=== PATIENT | male | born 1935 | race Caucasian/White ===

== ENCOUNTER → 2020-05-01 17:11 | Outpatient (CLI) | payer MEDICARE, SELFPAY ==
[2020-05-01 17:37] LABS: Basophils % 0.5 % (0.1-2.0); Eosinophils # 0.1 K/mm3 (0.0-0.4); Hematocrit 43.5 % (42.0-52.0); Hemoglobin 13.8 g/dL (14.1-18.0); Lymphocytes # 1.2 K/mm3 (0.7-4.5); Lymphocytes % 13.1 % (10-50); Mean Corpuscular HGB Conc 31.7 g/dL (31.8-35.4); Mean Corpuscular Hemoglobin 29.2 pg (27.0-31.2); Mean Corpuscular Volume 91.9 fl (80-94); Mean Platelet Volume 9.4 fl (7.4-10.4); Monocytes # 0.6 K/mm3 (0.1-1.0); Monocytes % 7.2 % (1.7-9.3); Neutrophils # 6.9 K/mm3 (1.8-7.8); Neutrophils % 78.1 % (37.0-80.0); Platelet Count 240 K/mm3 (142-424); Red Blood Count 4.74 M/mm3 (4.60-6.20); Red Cell Distribution Width 14.1 % (11.5-17.5); White Blood Count 8.8 K/mm3 (4.8-10.8)
[2020-05-01 17:58] LABS: Alanine Aminotransferase 14 U/L (12-78); Albumin Level 3.8 g/dl (3.5-5.0); Albumin/Globulin Ratio 1.4 (1.1-1.8); Alkaline Phosphatase 117 U/L (38-126); Anion Gap 14.2 mEq/L (5-15); Aspartate Amino Transferase 23 U/L (17-59); Bilirubin,Total 0.6 mg/dl (0.2-1.3); Blood Urea Nitrogen 25 mg/dl (9-20); Calcium 9.5 mg/dl (8.4-10.2); Carbon Dioxide 26 mmol/L (22.0-30.0); Chloride 107 mmol/L (98-107); Chol/HDL Ratio 3.5 (1-3.5); Cholesterol 136 mg/dl (140-200); Estimated Glomerular Filt Rate 58 ml/min (>60); GFR (African American) 70 ML/MIN (>60); Globulin 2.8 g/dL (1.3-3.2); Glucose 220 mg/dl (74-100); HDL Cholesterol 39 mg/dl (40-60); Potassium 5.2 mmoL/L (3.5-5.1); Sodium 142 mmol/L (136-145); Total Protein,Serum 6.6 g/dl (6.3-8.2); Triglycerides 143 mg/dl (30-150); VLDL Cholesterol 29 mg/dL (0-40)
[2020-05-01 18:10] LABS: Direct LDL Cholesterol 76.75 mg/dL (100-129)
[2020-05-01 18:17] LABS: T4 (Thyroxine) 8.1 ug/dl (5.53-11.0)
[2020-05-01 18:31] LABS: Thyroid Stimulating Hormone 0.96 uIU/mL (0.465-4.68)
[2020-05-01 19:02] LABS: Hemoglobin A1C 7.4 % (4.0-6.0)
== END ==
PROVIDERS: Visit Provider Family Medicine
DX: E11.9 Type 2 diabetes mellitus without complications (principal); I10 Essential (primary) hypertension; Z79.84 Long term (current) use of oral hypoglycemic drugs
CPT/HCPCS: 80053; 80061; 83036; 84436; 84443; 85025

== ENCOUNTER 2020-06-08 10:31 | Observation (INO) | payer MEDICARE, SELFPAY ==
[2020-06-08 10:32] VITALS: BP 98/53; PULSE 66; RESP 19; O2SAT 95; BMI 23.7
--- NOTE | 2020-06-08 11:30 | HMH.EDGENADL ---
ED Disposition Clinical Impression: Gross hematuria Disposition: Admitted As Inpatient Condition on Discharge: Good Referrals: Jelani Ashley MD [Primary Care Provider] - - Critical Care Critical Care Time: No Attestation: On 06/08/20, the high probability of a clinically significant, sudden or life threatening deterioration of the following system(s) required my full and direct attention, intervention and personal management. The time I documented below is in addition to time spent performing reported procedures but includes the following listed in this critical care notation. Medical Decision Making - Medical Records Medical records reviewed: Yes: I reviewed the patient's medical records. - Andrew Inquiry Pt receiving controlled substance: No Vital Signs: 06/08/20 10:32 Pulse Rate [Right Brachial] 66 Respiratory Rate 19 Blood Pressure [Right Arm] 98/53 L Blood Pressure Mean [Right Arm] 68 Blood Pressure Source [Right Arm] Automatic Cuff Blood Pressure Position [Right Arm] Sitting 02 Sat by Pulse Oximetry 95 Orders (Tests/Meds): ORDERS Category Date Time Status CMP [Comprehensive Metabolic Panel] Stat Lab 06/08/20 11:00 Ordered Complete Blood Count Auto Diff Stat Lab 06/08/20 11:00 Ordered Urinalysis and Microscopic Stat Lab 06/08/20 11:33 Ordered Medical Decision Narrative: 84-year-old male presents with hematuria he thinks is consistent with prostate bleeding. This is happened before. He is hemodynamically stable on initial exam with normal vital signs. Laboratory evaluation was obtained, Quezada placed, discussed case with Dr. Ashley. Plan to admit for further management with consultation to Dr. Geiger. General Adult HPI - General Chief complaint: GI Bleed Stated complaint: bleeding from prostate Time Seen by Provider: 06/08/20 10:35 Mode of Arrival: Wheelchair Limitations: Physical Limitations Description of Symptoms (Recalled from ER Triage Doc. by RN): BLEEDING NOTED FROM PROSTATE COMING FROM PENIS, WAS ON BED THIS MORNING - History of Present Illness HPI narrative: 84-year-old male presents with bleeding from prostate. He says he has had this before and had to be admitted at one time for this. He noticed that the bright red blood came from his penis this morning. No fever no chills no flank pain no abdominal pain. He is on Pradaxa as well. Onset (ago): hour(s) (1) Radiation: non-radiation Severity: mild - Related Data Previous Rx's Medication Instructions Recorded dabigatran etexilate 150 mg capsule 150 mg PO BID #180 cap 09/20/19 hydralazine 50 mg tablet 50 mg PO BID #180 tab 09/20/19 isosorbide dinitrate 20 mg tablet 20 mg PO BID #180 tab 09/20/19 losartan 100 mg tablet 100 mg PO DAILY #90 tab 09/20/19 metformin 500 mg tablet 500 mg PO BID #180 tab 09/20/19 metoprolol tartrate 50 mg tablet 50 mg PO BID #180 tab 09/20/19 tamsulosin 0.4 mg capsule 0.4 mg PO DAILY #90 cap 09/20/19 donepezil 5 mg tablet 5 mg PO HS #90 tab 05/01/20 finasteride 5 mg tablet 5 mg PO DAILY #90 tab 05/01/20 methylphenidate HCl 20 mg tablet 20 mg PO QAM #30 tab 05/01/20 alcohol swabs 1 pad TOPICAL DIRECTED #100 each 05/26/20 blood glucose control high and low See Rx Instructions .ROUTE 05/30/20 solution .MEDSUPPLY #1 each blood sugar diagnostic See Rx Instructions .ROUTE 05/30/20 .MEDSUPPLY #100 each blood-glucose meter See Rx Instructions .ROUTE 05/30/20 .MEDSUPPLY #1 each lancets See Rx Instructions .ROUTE 05/30/20 .MEDSUPPLY #200 each sulfamethoxazole 800 1 tab PO BID #20 tab 06/06/20 mg-trimethoprim 160 mg tablet Allergies Allergy/AdvReac Type Severity Reaction Status Date / Time clindamycin Allergy Verified 05/01/20 13:09 Penicillins AdvReac Unknown Verified 05/01/20 12:56 [facility] History - Hepatitis A Screen Drug use history?: No High risk sexual behaviors?: No History of sexually transmitted infection?: No Currently employed?: No Childcare worker?: No Do
--- NOTE | 2020-06-08 12:31 | PC.NURSE ---
Dr bui speaking with Dr Ashley
[2020-06-08 12:42] LABS: Microscopic, Urine URINE MICROSCOPIC (MICROSCOPIC)
[2020-06-08 12:45] LABS: Appearance,Urine CLEAR (Clear); Blood, Urine 3+ (Negative); Color,Urine YELLOW (Yellow); Glucose,Urine (UA) TRACE (Negative); Ketones,Urine 1+ (Negative); Leukocyte Esterase,Urine 2+ (Negative); Nitrate,Urine POSITIVE (Negative); Protein,Urine 3+ (Negative); Specific Gravity, Urine 1.015 (1.005-1.030); Urobilinogen,Urine >=8.0 EU/dl (0.2)
[2020-06-08 12:49] VITALS: BMI 21.5
[2020-06-08 12:54] LABS: Adenovirus,PCR Not Detected (NotDetected); Bordetella Pertussis Not Detected (NotDetected); Chlamydophila Pneumoniae, PCR Not Detected (NotDetected); Coronavirus 19, PCR Not Detected (NotDetected); Coronavirus 229E Not Detected (NotDetected); Coronavirus NL63 Not Detected (NotDetected); Coronavirus OC43 Not Detected (NotDetected); Coronovirus HKU1,PCR Not Detected (NotDetected); Human Metapneumovirus Not Detected (NotDetected); Influenza A, PCR Not Detected (NotDetected); Influenza AH1, 2009 Not Detected (NotDetected); Influenza AH1, PCR Not Detected (NotDetected); Influenza AH3,PCR Not Detected (NotDetected); Influenza B, PCR Not Detected (NotDetected); Mycoplasma Pneumoniae, PCR Not Detected (NotDetected); Parainfluenza 1, PCR Not Detected (NotDetected); Parainfluenza 2, PCR Not Detected (NotDetected); Parainfluenza 3, PCR Not Detected (NotDetected); Parainfluenza 4, PCR Not Detected (NotDetected); Respiratory Syncytial Virus Not Detected (NotDetected); Rhinovirus/Enterovirus Not Detected (NotDetected)
[2020-06-08 12:55] LABS: Bilirubin,Urine 2+ (Negative)
[2020-06-08 13:17] LABS: RBC,Urine 50-100 #/hpf (0-3)
[2020-06-08 13:18] LABS: Bacteria,Urine 1+ /lpf
--- NOTE | 2020-06-08 14:51 | PC.NURSE ---
REPORT CALLED TO CHAD RUIZ ON SECOND FLOOR AT TIME
[2020-06-08 14:52] LABS: Chloride 105 mmol/L (98-107); Potassium 4.9 mmoL/L (3.5-5.1); Sodium 140 mmol/L (136-145)
[2020-06-08 14:54] LABS: Alanine Aminotransferase 11 U/L (12-78); Aspartate Amino Transferase 19 U/L (17-59); Basophils % 0.5 % (0.1-2.0); Blood Urea Nitrogen 21 mg/dl (9-20); Creatinine Clearance Estimated 44 mL/min (50-200); Eosinophils # 0.1 K/mm3 (0.0-0.4); Eosinophils % 1.5 % (0.1-12.0); Estimated Glomerular Filt Rate 48 ml/min (>60); GFR (African American) 59 ML/MIN (>60); Hemoglobin 13.3 g/dL (14.1-18.0); Lymphocytes % 12.8 % (10-50); Mean Corpuscular HGB Conc 31.7 g/dL (31.8-35.4); Mean Corpuscular Hemoglobin 28.4 pg (27.0-31.2); Mean Corpuscular Volume 89.5 fl (80-94); Monocytes # 0.7 K/mm3 (0.1-1.0); Monocytes % 8.9 % (1.7-9.3); Neutrophils # 6.1 K/mm3 (1.8-7.8); Neutrophils % 76.3 % (37.0-80.0); Platelet Count 233 K/mm3 (142-424)
[2020-06-08 14:55] LABS: Albumin Level 3.9 g/dl (3.5-5.0); Albumin/Globulin Ratio 1.4 (1.1-1.8); Alkaline Phosphatase 104 U/L (38-126); Anion Gap 13.9 mEq/L (5-15); Bilirubin,Total 0.8 mg/dl (0.2-1.3); Calcium 9.6 mg/dl (8.4-10.2); Carbon Dioxide 26 mmol/L (22.0-30.0); Globulin 2.7 g/dL (1.3-3.2); Glucose 137 mg/dl (74-100); Total Protein,Serum 6.6 g/dl (6.3-8.2)
--- NOTE | 2020-06-08 15:31 | PC.NURSE ---
Pt arrived to the floor at this time.
[2020-06-08 15:52] VITALS: BP 122/61; PULSE 71; RESP 16; TEMP 36.8; O2SAT 97
[2020-06-08 15:59] VITALS: BP 127/98; PULSE 79; RESP 22; TEMP 36.6; O2SAT 93
--- NOTE | 2020-06-08 16:48 | HMH.CONS ---
*Admission Date: 06/08/20 *Reason for consult:: Gross hematuria *History of present illness: Patient is an 84-year-old white male who presented to the emergency room this morning with 1 day history of gross hematuria by report. Patient is a poor historian as he is pleasantly demented. Nursing report gives a prior history of bleeding from a prostate etiology. Patient is on tamsulosin and finasteride. He is also on Pradaxa. Quezada catheter was placed in the emergency room and he is currently on the floor. His labs show slightly elevated creatinine at 1.4 and hemoglobin of 13.8. His urinalysis shows positive nitrites 2+ leukocyte esterase 50-100 red blood cells. Patient denies any dysuria. His was here earlier by nursing report but is not here at this time for any further details. The Quezada catheter is draining well and there is no evidence of clots in the Quezada bag. The urine is maroon color. [facility] History Medical History: Reports:: Cancer (SKIN), Depression, Diabetes Mellitus Type 2, Hiatal Hernia, Hypertension, Internal Pacemaker, Urinary Tract Infection Denies:: Diabetes Mellitus Type 1, MRSA *Have you ever received a pneumonia vaccine?: Yes *Have you received a flu vaccine this season?: Yes Other Medical History: Reports: Arthritis Laterality Cases: Right: Other, Bilateral: Carpal Tunnel Release Other Surgeries: Yes: Cardiac Surgery, Colonoscopy, Coronary Stent, Hernia Repair, Pacemaker Amputation: No - *Social History Smoking Status: Former smoker Alcohol Intake: never Substance Use Type: denies use *Occupational Status:: retired Housing: house Household Members: spouse *Travel in the last 8 weeks: None - Psychiatric History Pschychiatric History:: Reports:: Depression Family Hx:: Heart Attack, Hyperlipidemia, Hypertension Review of Systems - Review of Systems Review of systems:: unable to obtain - *Neurologic Denies dizziness, Denies headache(s) Meds Home Medications Medication Instructions Recorded Confirmed Type methylphenidate HCl 20 mg tablet 20 mg PO QAM #30 tab 05/01/20 06/08/20 Rx Alcohol Antiseptic Pads [Alcohol 1 pad TOPICAL DIRECTED 06/08/20 06/08/20 History Swabs] Blood Glucose Control High,Low See Rx Instructions .ROUTE 06/08/20 06/08/20 History [Accu-Chek Guide L1-L2 Ctrl Lea] .MEDSUPPLY Blood Sugar Diagnostic [Accu-Chek See Rx Instructions .ROUTE 06/08/20 06/08/20 History Guide test strips] .MEDSUPPLY Blood-Glucose Meter [Blood Glucose See Rx Instructions .ROUTE 06/08/20 06/08/20 History Meter] .MEDSUPPLY Dabigatran Etexilate Mesylate 150 mg PO BID 06/08/20 06/08/20 History [Pradaxa] Donepezil HCl [Aricept 5mg 5 mg PO HS 06/08/20 06/08/20 History Tablet] Finasteride [Proscar] 5 mg PO DAILY 06/08/20 06/08/20 History Hydralazine HCl 50 mg PO BID 06/08/20 06/08/20 History Isosorbide Dinitrate [Isordil 20mg 20 mg PO BID 06/08/20 06/08/20 History tablet] Lancets See Rx Instructions .ROUTE 06/08/20 06/08/20 History .MEDSUPPLY Losartan Potassium [Cozaar 100mg 100 mg PO DAILY 06/08/20 06/08/20 History Tablets] Metformin HCl [Glucophage] 500 mg PO BID 06/08/20 06/08/20 History Metoprolol Tartrate 50 mg PO BID 06/08/20 06/08/20 History Tamsulosin HCl 0.4 mg PO DAILY 06/08/20 06/08/20 History Allergies Allergy/AdvReac Type Severity Reaction Status Date / Time clindamycin Allergy Verified 05/01/20 13:09 Penicillins AdvReac Unknown Verified 05/01/20 12:56 Exam Vital signs and Labs for Last 24 Hours: Temp Pulse Resp BP Pulse Ox 97.8 F 79 22 127/98 H 93 L 06/08/20 15:59 06/08/20 15:59 06/08/20 15:59 06/08/20 15:59 06/08/20 15:59 Laboratory Results - last 24 hr 06/08/20 12:35: Urine Color Yellow, Urine Appearance Clear, Urine pH 7.0, Ur Specific [place] 1.015, Urine Protein 3+, Urine Glucose (UA) Trace, Urine Ketones 1+, Urine Blood 3+, Urine Nitrate Positive, Urine Bilirubin 2+ A, Urine Urobilinogen >=8.0, Ur Leukocyte Esterase 2+ A, Urine RBC
--- NOTE | 2020-06-08 17:25 | PC.NURSE ---
DR. HOWE SEEN PT AND ORDERED A 22FR THREE WAY CATHETER AND CBI. HE STATED CBI WITH LR. Harish MORALES RN, Fili PALOMINO RN, AND THIS RN ALL AT BEDSIDE TO INSERT VANG AND START BLADDER IRRIGATION. ORDER ALSO FAXED TO PHARMACY FOR CDI.
--- NOTE | 2020-06-08 18:46 | PC.WOUNDNOTE ---
RIGHT SIDE OF HEAD ABOVE EAR
--- NOTE | 2020-06-08 19:04 | PC.NURSE ---
TOTAL INPUT FOR CBI SINCE STARTING IS APPROX. 1999. JUST EMPTIED 1850 TOTAL ML OUT OF VANG BAG.
--- NOTE | 2020-06-08 19:33 | HMH.HP ---
*Admission Date: 06/08/20 *Chief complaint: hematuria *History of present illness: Patient is an 84-year-old white male, well-known to me from my practice, who is admitted for gross hematuria. Patient has a longstanding history of BPH. He was slated to undergo a urologic procedure about 6 or 7 years ago. He has atrial fibrillation. Anticoagulation was held prior to this procedure, and he unfortunately sustained a thromboembolic stroke. He has had significant residual deficits following the stroke, gait instability and weakness. He requires [id number] care at home. Patient has comorbid diabetes, atrial fibrillation. He has a vegetative depression following the stroke. His dementia has been evolving. He has significant mood swings. Patient's has noticed gross hematuria. Continues to be anticoagulated for his atrial fibrillation. He presents for further evaluation and treatment. [facility] History Medical History: Reports:: Cancer (SKIN), Depression, Diabetes Mellitus Type 2, Hiatal Hernia, Hypertension, Internal Pacemaker, Urinary Tract Infection Denies:: Diabetes Mellitus Type 1, MRSA *Have you ever received a pneumonia vaccine?: Yes *Have you received a flu vaccine this season?: Yes Other Medical History: Reports: Arthritis Laterality Cases: Right: Other, Bilateral: Carpal Tunnel Release Other Surgeries: Yes: Cardiac Surgery, Colonoscopy, Coronary Stent, Hernia Repair, Pacemaker Amputation: No - *Social History Smoking Status: Former smoker Alcohol Intake: never Substance Use Type: denies use *Occupational Status:: retired Housing: house Household Members: spouse *Travel in the last 8 weeks: None - Psychiatric History Pschychiatric History:: Reports:: Depression Family Hx:: Heart Attack, Hyperlipidemia, Hypertension Review of Systems - Constitutional Reports lack of energy, Reports malaise - Eyes Denies change in vision - ENT Denies bleeding gums - *Cardiovascular Denies chest pain, Denies shortness of breath - *Respiratory Denies chest congestion - *Gastrointestinal Denies abdominal pain, Denies vomiting blood, Denies bright, red blood in stools, Denies black, tarry stools - *Genitourinary Reports difficulty urinating, Reports blood in urine, Reports urinary frequency, Reports urinary incontinence, Denies side pain - *Musculoskeletal Reports abnormal walking, Reports joint pain, Reports decreased muscle mass, Reports muscle weakness, Reports stiffness - Integumentary/Breasts Denies yellowing of the skin - *Neurologic Reports behavioral changes, Reports memory loss, Reports weakness, Denies dizziness, Denies headache(s) - Psychiatric Reports lack of enjoyment, Reports behavioral changes, Reports depression, Reports hopelessness, Reports irritability, Reports memory loss, Reports mood swings - Endocrine Reports rapid, pounding, or irregular heartbeat - Hematologic/Lymphatic Denies easy bleeding, Denies easy bruising - Allergic/Immunologic Denies hives Meds Home Medications Medication Instructions Recorded Confirmed Type methylphenidate HCl 20 mg tablet 20 mg PO QAM #30 tab 05/01/20 06/08/20 Rx Alcohol Antiseptic Pads [Alcohol 1 pad TOPICAL DIRECTED 06/08/20 06/08/20 History Swabs] Blood Glucose Control High,Low See Rx Instructions .ROUTE 06/08/20 06/08/20 History [Accu-Chek Guide L1-L2 Ctrl Lea] .MEDSUPPLY Blood Sugar Diagnostic [Accu-Chek See Rx Instructions .ROUTE 06/08/20 06/08/20 History Guide test strips] .MEDSUPPLY Blood-Glucose Meter [Blood Glucose See Rx Instructions .ROUTE 06/08/20 06/08/20 History Meter] .MEDSUPPLY Dabigatran Etexilate Mesylate 150 mg PO BID 06/08/20 06/08/20 History [Pradaxa] Donepezil HCl [Aricept 5mg 5 mg PO HS 06/08/20 06/08/20 History Tablet] Finasteride [Proscar] 5 mg PO DAILY 06/08/20 06/08/20 History Hydralazine HCl 50 mg PO BID 06/08/20 06/08/20 History Isosorbide Dinitrate [Isordil 20mg 20 mg PO BID 06/08/20 0
[2020-06-08 20:00] VITALS: BP 111/76; PULSE 63; RESP 18; TEMP 36.7; O2SAT 97
--- NOTE | 2020-06-09 02:31 | PC.NURSE ---
CBI HAS BEEN CONTINUOUS T/O SHIFT. URINE HAS BEEN LIGHT PINK T/O SHIFT. URINE NOW CLEAR. IRRIGATION DRIP SLOWED. WILL CONTINUE TO MONITOR URINE AND COLOR T/O SHIFT.
--- NOTE | 2020-06-09 03:06 | PC.NURSE ---
A&OX2. PT TOLERATING RA WELL T/O SHIFT. PT HAS HAD NO C/O PAIN THUS FAR. PT HAS BEEN RESTING MAJORITY OF SHIFT. CBI IS STILL CLEAR AT THIS TIME. TITRATED TO A SLOW DRIP. NO C/O THUS FAR, VSS WILL CONTINUE TO MONITOR.
[2020-06-09 04:00] VITALS: BP 119/68; PULSE 68; RESP 16; TEMP 36.8; O2SAT 97
--- NOTE | 2020-06-09 04:50 | PC.NURSE ---
URINE BACK TO LIGHT PINK IN COLOR. CBI INCREASED.
[2020-06-09 05:35] VITALS: BMI 21.2
[2020-06-09 07:19] LABS: Basophils % 0.4 % (0.1-2.0); Eosinophils # 0.2 K/mm3 (0.0-0.4); Eosinophils % 1.8 % (0.1-12.0); Hematocrit 42.4 % (42.0-52.0); Hemoglobin 13.6 g/dL (14.1-18.0); Lymphocytes # 1.3 K/mm3 (0.7-4.5); Lymphocytes % 14.5 % (10-50); Mean Corpuscular HGB Conc 32.1 g/dL (31.8-35.4); Mean Corpuscular Hemoglobin 28.9 pg (27.0-31.2); Mean Corpuscular Volume 89.8 fl (80-94); Mean Platelet Volume 8.7 fl (7.4-10.4); Monocytes % 11.1 % (1.7-9.3); Neutrophils # 6.4 K/mm3 (1.8-7.8); Neutrophils % 72.3 % (37.0-80.0); Platelet Count 213 K/mm3 (142-424); Red Blood Count 4.72 M/mm3 (4.60-6.20); Red Cell Distribution Width 14.1 % (11.5-17.5); White Blood Count 8.8 K/mm3 (4.8-10.8)
--- NOTE | 2020-06-09 07:25 | P.CONPHA_ITS ---
[facility] Pharm[facility] VTE Monitoring - Patient Demographics Admission date: 06/08/20 Report Date: 06/09/20 Time: 07:25 Allergies/Adverse Reactions: Patient Allergies clindamycin Allergy (Verified 05/01/20 13:09) Penicillins Adverse Reaction (Unknown, Verified 05/01/20 12:56) Height: 1.8 m Weight: 68.974 kg Patient Problems: Current Active Problems Gross hematuria (Acute) Hematuria (Acute) Dementia (Acute) Chronic anticoagulation (Acute) Pacemaker (Acute) Physical debility (Acute) Knee pain (Acute) Erosive osteoarthritis of multiple sites (Acute) Essential hypertension (Acute) Depression (Acute) BPH (benign prostatic hyperplasia) (Acute) Atrial fibrillation (Acute) History of stroke (Acute) - VTE Risk Labs: VTE Related Lab Results Hgb 13.3 g/dL (14.1-18.0) L 06/08/20 14:40 Hct 42.0 % (42.0-52.0) 06/08/20 14:40 Plt Count 233 K/mm3 (142-424) 06/08/20 14:40 BUN 21 mg/dl (9-20) H 06/08/20 14:40 Creatinine 1.40 mg/dl (0.66-1.25) H 06/08/20 14:40 Estimated Creat Clear 44 mL/min (50-200) 06/08/20 14:40 Was VTE Risk Assessment Performed: No VTE Score: 4 VTE Risk Level: Low Risk - Prophylaxis VTE Prophylaxis Ordered?: Yes Types of VTE Prophylaxis: TEDS Knee High Location of Applied Device: Bilateral Lower Extremeties
[2020-06-09 07:51] VITALS: O2SAT 99
[2020-06-09 08:00] VITALS: BP 124/77; PULSE 64; RESP 17; TEMP 36.8; O2SAT 98
--- NOTE | 2020-06-09 10:18 | HMH.PHAINT ---
MEDICATION RECONCILIATION COMPLETED USING EXTERNAL FILL HISTORY
[2020-06-09 13:44] LABS: Chloride 104 mmol/L (98-107); Potassium 4.6 mmoL/L (3.5-5.1); Sodium 140 mmol/L (136-145)
[2020-06-09 13:47] LABS: Anion Gap 14.6 mEq/L (5-15); Blood Urea Nitrogen 20 mg/dl (9-20); Carbon Dioxide 26 mmol/L (22.0-30.0); Cholesterol 138 mg/dl (140-200); Creatinine Clearance Estimated 42 mL/min (50-200); Estimated Glomerular Filt Rate 53 ml/min (>60); GFR (African American) 64 ML/MIN (>60); Triglycerides 76 mg/dl (30-150); VLDL Cholesterol 15 mg/dL (0-40)
[2020-06-09 13:48] LABS: Calcium 9.4 mg/dl (8.4-10.2); Chol/HDL Ratio 3.7 (1-3.5); Glucose 98 mg/dl (74-100); HDL Cholesterol 37 mg/dl (40-60); Magnesium 2.1 mg/dl (1.6-2.3); Phosphorous 3.7 mg/dl (2.5-4.5)
[2020-06-09 15:39] VITALS: BMI 21.2
--- NOTE | 2020-06-09 15:48 | HMH.CONFU ---
Internal Medicine - PN: Subj *Date: 06/09/20 *Time: 15:48 Interval history: Patient is pleasantly demented gentleman. His urine this morning was pink and we have left the bladder irrigation off for most of the day and he has been up to a chair and the urine has remained clear to pink. Exam Vital signs and Labs for Last 24 Hours: Temp Pulse Resp BP Pulse Ox 98.2 F 64 17 124/77 98 06/09/20 08:00 06/09/20 08:00 06/09/20 08:00 06/09/20 08:00 06/09/20 08:00 Laboratory Results - last 24 hr 06/09/20 06:05: WBC 8.8, RBC 4.72, Hgb 13.6 L, Hct 42.4, MCV 89.8, MCH 28.9, MCHC 32.1, RDW 14.1, Plt Count 213, MPV 8.7, Neut % (Auto) 72.3, Lymph % (Auto) 14.5, [place] % (Auto) 11.1 H, Eos % (Auto) 1.8, Baso % (Auto) 0.4, Neut # (Auto) 6.4, Lymph # (Auto) 1.3, [place] # (Auto) 1.0, Eos # (Auto) 0.2, Baso # (Auto) 0.0 06/09/20 06:05: Sodium 140, Potassium 4.6, Chloride 104, Carbon Dioxide 26, Anion Gap 14.6, BUN 20, Creatinine 1.30 H, Estimated Creat Clear 42, Estimated GFR 53 L, Est GFR ( Amer) 64, Glucose 98 D, Calcium 9.4, Phosphorus 3.7, Magnesium 2.1, Triglycerides 76, Cholesterol 138 L, LDL Cholesterol Direct 89.40 L, VLDL Cholesterol 15, HDL Cholesterol 37 L, Cholesterol/HDL Ratio 3.7 H I & O for Last 24 hours: Intake & Output 06/06/20 06/07/20 06/08/20 06/09/20 23:59 23:59 23:59 23:59 Intake Total 240 / 240 240 / 240 Output Total 700 / 700 5000 / 5000 Balance -460 / -460 -4760 / -4760 Weight 70.108 kg 69 kg Microbiology Reports for the Last 24 Hours: Microbiology 06/08/20 12:35 Urine,Catheterized Urine Culture - Preliminary NO GROWTH AFTER 24 HOURS - Constitutional no acute distress - *Routine HEENT Exam Head: Present: normocephalic Eye: Present: EOMI, PERRL ENT: Present: mucous membranes moist - *Routine Neck Exam Present: supple. Absent: lymphadenopathy - *Routine Respiratory Exam Present: CTA bilaterally. Absent: accessory muscle use - *Routine Cardiovascular Exam Absent: JVD - *Routine Abdominal Exam Present: soft. Absent: tenderness - *Routine Extremities Exam Absent: cyanosis, clubbing, edema - *Routine Skin Exam Present: warm. Absent: rash - *Routine Neurological Exam Present: alert Assessment and Plan (1) Hematuria Status: Acute Category: Medical Code(s): R31.9 - Hematuria, unspecified Patient with gross hematuria. A 22 American three-way catheter was placed to continuous bladder irrigation. The urine has cleared up nicely and recommend putting a plug in the three-way Quezada but leaving the CBI fluid in the room in case it is needed. Patient's Pradaxa is being held at this point and he has been started on Levaquin for UTI. By report he is going to be here for a couple more days. If his urine remains clear I would recommend removing the Quezada catheter gently prior to discharge. (2) Atrial fibrillation Status: Acute Qualifiers: Atrial fibrillation type: paroxysmal Qualified Code(s): I48.0 - Paroxysmal atrial fibrillation Category: Medical Code(s): I48.91 - Unspecified atrial fibrillation (3) BPH (benign prostatic hyperplasia) Status: Acute Qualifiers: Lower urinary tract symptom presence: symptoms present Lower urinary tract symptom detail: incomplete bladder emptying Qualified Code(s): N40.1 - Benign prostatic hyperplasia with lower urinary tract symptoms; R39.14 - Feeling of incomplete bladder emptying Category: Medical Code(s): N40.0 - Benign prostatic hyperplasia without lower urinary tract symptoms (4) Chronic anticoagulation Status: Acute Category: Medical Code(s): Z79.01 - shelter (current) use of anticoagulants (5) Dementia Status: Acute Qualifiers: Dementia type: vascular dementia Dementia behavioral disturbance: with behavioral disturbance Qualified Code(s): F01.51 - Vascular dementia with behavioral disturbance Category: Medical Code(s): F03.90 - Unspe
[2020-06-09 16:00] VITALS: BP 155/82; PULSE 66; RESP 18; TEMP 36.6; O2SAT 98
--- NOTE | 2020-06-09 16:11 | PC.NURSE ---
Per Md Geiger, pt does not need to be on CBI at this time and catheter can be locked and keep everything on standby if pt requires CBI again.
--- NOTE | 2020-06-09 17:39 | PC.NURSE ---
Pt has been pleasantly confused this shift. At times pt does yell out for , but is easily redirected. CBI has been at an extremely slow rate most of this shift with urine clear to light pink. When pt moves or ambulates, urine does appear bright red but then quickly goes back to light pink or clear. Currently three-way cath is plugged at the CBI site. Pt is currently UTC and eating dinner. Pt has had x1 large, soft, brown bowel movement this shift. Pt requires x2 assist w/ a walker to ambulate, pt tolerates this fairly. No other acute changes or complaints at this time.
--- NOTE | 2020-06-09 17:46 | HMH.ACPN2 ---
Internal Medicine - PN: Subj *Date: 06/09/20 *Time: 09:30 Interval history: pt stating he needs to void Exam Vital signs and Labs for Last 24 Hours: Temp Pulse Resp BP Pulse Ox 97.8 F 66 18 155/82 H 98 06/09/20 16:00 06/09/20 16:00 06/09/20 16:00 06/09/20 16:00 06/09/20 16:00 Laboratory Results - last 24 hr 06/09/20 06:05: WBC 8.8, RBC 4.72, Hgb 13.6 L, Hct 42.4, MCV 89.8, MCH 28.9, MCHC 32.1, RDW 14.1, Plt Count 213, MPV 8.7, Neut % (Auto) 72.3, Lymph % (Auto) 14.5, [place] % (Auto) 11.1 H, Eos % (Auto) 1.8, Baso % (Auto) 0.4, Neut # (Auto) 6.4, Lymph # (Auto) 1.3, [place] # (Auto) 1.0, Eos # (Auto) 0.2, Baso # (Auto) 0.0 06/09/20 06:05: Sodium 140, Potassium 4.6, Chloride 104, Carbon Dioxide 26, Anion Gap 14.6, BUN 20, Creatinine 1.30 H, Estimated Creat Clear 42, Estimated GFR 53 L, Est GFR ( Amer) 64, Glucose 98 D, Calcium 9.4, Phosphorus 3.7, Magnesium 2.1, Triglycerides 76, Cholesterol 138 L, LDL Cholesterol Direct 89.40 L, VLDL Cholesterol 15, HDL Cholesterol 37 L, Cholesterol/HDL Ratio 3.7 H I & O for Last 24 hours: Intake & Output 06/07/20 06/08/20 06/09/20 06/10/20 11:59 11:59 11:59 11:59 Intake Total 240 / 240 480 / 480 Output Total 5700 / 5700 1400 / 1400 Balance -5460 / -5460 -920 / -920 Weight 170 lb 152 lb 1 oz 152 lb 1.903 oz Microbiology Reports for the Last 24 Hours: Microbiology 06/08/20 12:35 Urine,Catheterized Urine Culture - Preliminary NO GROWTH AFTER 24 HOURS - Constitutional no acute distress - *Routine HEENT Exam Head: Present: normocephalic Eye: Present: PERRL ENT: Present: mucous membranes moist - *Routine Neck Exam Present: supple. Absent: lymphadenopathy - *Routine Respiratory Exam Present: CTA bilaterally - *Routine Cardiovascular Exam Present: irregular rhythm Comments: pacemaker - *Routine Abdominal Exam Present: soft, normoactive bowel sounds. Absent: tenderness - *Routine Exam Comments: bladder irrigation in place - *Routine Extremities Exam Absent: cyanosis, clubbing, edema - *Routine Skin Exam Present: warm. Absent: rash - *Routine Neurological Exam Present: alert - Routine Psychiatric Exam Present: normal affect Assessment and Plan (1) Hematuria Status: Acute Category: Medical Code(s): R31.9 - Hematuria, unspecified (2) Atrial fibrillation Status: Acute Qualifiers: Atrial fibrillation type: paroxysmal Qualified Code(s): I48.0 - Paroxysmal atrial fibrillation Category: Medical Code(s): I48.91 - Unspecified atrial fibrillation (3) BPH (benign prostatic hyperplasia) Status: Acute Qualifiers: Lower urinary tract symptom presence: symptoms present Lower urinary tract symptom detail: incomplete bladder emptying Qualified Code(s): N40.1 - Benign prostatic hyperplasia with lower urinary tract symptoms; R39.14 - Feeling of incomplete bladder emptying Category: Medical Code(s): N40.0 - Benign prostatic hyperplasia without lower urinary tract symptoms (4) Chronic anticoagulation Status: Acute Category: Medical Code(s): Z79.01 - penitentiary (current) use of anticoagulants (5) Dementia Status: Acute Qualifiers: Dementia type: vascular dementia Dementia behavioral disturbance: with behavioral disturbance Qualified Code(s): F01.51 - Vascular dementia with behavioral disturbance Category: Medical Code(s): F03.90 - Unspecified dementia without behavioral disturbance (6) Depression Status: Acute Qualifiers: Depression Type: major depressive disorder Major depression recurrence: recurrent Active/Remission status: currently active Major depression episode severity: severe Psychotic features: without psychotic features Qualified Code(s): F33.2 - Major depressive disorder, recurrent severe without psychotic features Category: Medical Code(s): F32.9 - Major depressive disorder, single episode, unspec
[2020-06-09 20:00] VITALS: BP 180/92; PULSE 68; RESP 21; TEMP 36.8; O2SAT 94
--- NOTE | 2020-06-09 23:28 | PC.NURSE ---
PULLED CATHETER, PT TOLERATED WELL. URINE LIGHT PINK. PT MOVED TO BED WITH X3 STAFF. PT RESTING IN BED COMFORTABLY AT THIS TIME. SAFETY APPLIED. REPORT GIVEN TO David HENDERSON RN.
[2020-06-10 04:00] VITALS: BP 130/92; PULSE 68; RESP 18; TEMP 36.4; O2SAT 94
[2020-06-10 05:01] VITALS: BMI 21.2
--- NOTE | 2020-06-10 05:32 | PC.NURSE ---
pt has been pleasantly confused this shift, has yelled out several times for and has asked several times where she is, roman catheter was DCed earlier in shift, and pt did have one episode of incontinence of urine soaking through all bed linens, remains on room air, lungs CTA, no complaints this shift of pain or SOA
[2020-06-10 08:00] VITALS: BP 147/99; PULSE 66; RESP 18; TEMP 36.6; O2SAT 97
[2020-06-10 09:21] LABS: Basophils % 0.5 % (0.1-2.0); Eosinophils # 0.1 K/mm3 (0.0-0.4); Eosinophils % 1.5 % (0.1-12.0); Hematocrit 39.5 % (42.0-52.0); Hemoglobin 13.1 g/dL (14.1-18.0); Lymphocytes # 1.4 K/mm3 (0.7-4.5); Lymphocytes % 15.6 % (10-50); Mean Corpuscular HGB Conc 33.2 g/dL (31.8-35.4); Mean Corpuscular Hemoglobin 29.1 pg (27.0-31.2); Mean Corpuscular Volume 87.5 fl (80-94); Mean Platelet Volume 7.9 fl (7.4-10.4); Monocytes # 0.8 K/mm3 (0.1-1.0); Monocytes % 8.8 % (1.7-9.3); Neutrophils # 6.4 K/mm3 (1.8-7.8); Neutrophils % 73.7 % (37.0-80.0); Platelet Count 221 K/mm3 (142-424); Red Blood Count 4.51 M/mm3 (4.60-6.20); White Blood Count 8.7 K/mm3 (4.8-10.8)
[2020-06-10 09:29] LABS: Chloride 106 mmol/L (98-107); Sodium 139 mmol/L (136-145)
[2020-06-10 09:30] LABS: Potassium 4.1 mmoL/L (3.5-5.1)
[2020-06-10 09:32] LABS: Blood Urea Nitrogen 21 mg/dl (9-20); Creatinine Clearance Estimated 42 mL/min (50-200); Estimated Glomerular Filt Rate 53 ml/min (>60); GFR (African American) 64 ML/MIN (>60)
[2020-06-10 09:33] LABS: Anion Gap 14.1 mEq/L (5-15); Calcium 9.2 mg/dl (8.4-10.2); Carbon Dioxide 23 mmol/L (22.0-30.0); Glucose 195 mg/dl (74-100)
--- NOTE | 2020-06-10 13:35 | HMH.ACPN2 ---
Internal Medicine - PN: Subj *Date: 06/10/20 *Time: 08:00 Interval history: pt laying in bed, confused. three way cath dc, per staff no problems urinating Exam Vital signs and Labs for Last 24 Hours: Temp Pulse Resp BP Pulse Ox 97.9 F 66 18 147/99 H 97 06/10/20 08:00 06/10/20 08:00 06/10/20 08:00 06/10/20 08:00 06/10/20 08:00 Laboratory Results - last 24 hr 06/09/20 06:05: Sodium 140, Potassium 4.6, Chloride 104, Carbon Dioxide 26, Anion Gap 14.6, BUN 20, Creatinine 1.30 H, Estimated Creat Clear 42, Estimated GFR 53 L, Est GFR ( Amer) 64, Glucose 98 D, Calcium 9.4, Phosphorus 3.7, Magnesium 2.1, Triglycerides 76, Cholesterol 138 L, LDL Cholesterol Direct 89.40 L, VLDL Cholesterol 15, HDL Cholesterol 37 L, Cholesterol/HDL Ratio 3.7 H 06/10/20 09:00: WBC 8.7, RBC 4.51 L, Hgb 13.1 L, Hct 39.5 L, MCV 87.5, MCH 29.1, MCHC 33.2, RDW 14.0, Plt Count 221, MPV 7.9, Neut % (Auto) 73.7, Lymph % (Auto) 15.6, [place] % (Auto) 8.8, Eos % (Auto) 1.5, Baso % (Auto) 0.5, Neut # (Auto) 6.4, Lymph # (Auto) 1.4, [place] # (Auto) 0.8, Eos # (Auto) 0.1, Baso # (Auto) 0.0 06/10/20 09:00: Sodium 139, Potassium 4.1, Chloride 106, Carbon Dioxide 23, Anion Gap 14.1, BUN 21 H, Creatinine 1.30 H, Estimated Creat Clear 42, Estimated GFR 53 L, Est GFR ( Amer) 64, Glucose 195 H, Calcium 9.2 I & O for Last 24 hours: Intake & Output 06/08/20 06/09/20 06/10/20 06/11/20 11:59 11:59 11:59 11:59 Intake Total 240 / 240 840 / 840 Output Total 5700 / 5700 1400 / 1400 Balance -5460 / -5460 -560 / -560 Weight 170 lb 152 lb 1 oz 151 lb 4 oz Microbiology Reports for the Last 24 Hours: Microbiology 06/08/20 12:35 Urine,Catheterized Urine Culture - Final NO GROWTH AFTER 48 HOURS - Constitutional no acute distress, chronically ill appearing - *Routine HEENT Exam Head: Present: normocephalic Eye: Present: PERRL ENT: Present: mucous membranes moist - *Routine Neck Exam Present: supple. Absent: lymphadenopathy - *Routine Respiratory Exam Present: CTA bilaterally - *Routine Cardiovascular Exam Present: RRR - *Routine Abdominal Exam Present: soft, normoactive bowel sounds. Absent: tenderness - *Routine Extremities Exam Present: normal capillary refill. Absent: cyanosis, clubbing, edema - *Routine Skin Exam Present: warm. Absent: rash - *Routine Neurological Exam Present: alert - Routine Psychiatric Exam Present: normal affect Assessment and Plan (1) Hematuria Status: Acute Category: Medical Code(s): R31.9 - Hematuria, unspecified (2) Atrial fibrillation Status: Acute Qualifiers: Atrial fibrillation type: paroxysmal Qualified Code(s): I48.0 - Paroxysmal atrial fibrillation Category: Medical Code(s): I48.91 - Unspecified atrial fibrillation (3) BPH (benign prostatic hyperplasia) Status: Acute Qualifiers: Lower urinary tract symptom presence: symptoms present Lower urinary tract symptom detail: incomplete bladder emptying Qualified Code(s): N40.1 - Benign prostatic hyperplasia with lower urinary tract symptoms; R39.14 - Feeling of incomplete bladder emptying Category: Medical Code(s): N40.0 - Benign prostatic hyperplasia without lower urinary tract symptoms (4) Chronic anticoagulation Status: Acute Category: Medical Code(s): 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
[2020-06-10 15:38] VITALS: BP 154/82; PULSE 63; RESP 18; TEMP 36.8; O2SAT 92
--- NOTE | 2020-06-10 17:06 | PC.NURSE ---
Pt has been very confused this shift, but easy to redirect. Pt has been incontinent of urine this shift, urine is dark yellow in color. No clots or hematuria noted. Active bowels sounds in all 4 quads, no BM noted this shift. No other acute changes or complaints at this time.
[2020-06-10 19:48] VITALS: BP 141/63; PULSE 66; RESP 16; TEMP 36.5; O2SAT 92
[2020-06-10 22:32] LABS: POC Glucose,Bedside 195 (70-110)
[2020-06-11 03:58] VITALS: BP 169/94; PULSE 78; RESP 16; TEMP 36.8; O2SAT 98
[2020-06-11 05:15] VITALS: BMI 21.0
--- NOTE | 2020-06-11 05:36 | PC.NURSE ---
shift summary pts lung sounds are clear with sats maintained at 98% with a rate of 16. pt can be awaken by sayiing his name and will follow commands while awake but fall asleep during commands. pt states he cant stay awake that hes to tired. pt denies pain or nausea.
[2020-06-11 07:27] VITALS: BP 180/90; PULSE 72; RESP 18; TEMP 36.5; O2SAT 95
[2020-06-11 08:00] VITALS: O2SAT 95
--- NOTE | 2020-06-11 09:59 | HMH.ACPN2 ---
Internal Medicine - PN: Subj *Date: 06/12/20 *Time: 07:52 Interval history: pt more alert today but still requiring sig aide to ambulate - no urinary bleeding Exam Vital signs and Labs for Last 24 Hours: Temp Pulse Resp BP Pulse Ox 97.7 F 72 18 180/90 H 95 06/11/20 07:27 06/11/20 07:27 06/11/20 07:27 06/11/20 07:27 06/11/20 08:00 Laboratory Results - last 24 hr 06/10/20 09:00: Carbon Dioxide 23, Anion Gap 14.1, BUN 21 H, Creatinine 1.30 H, Estimated Creat Clear 42, Estimated GFR 53 L, Est GFR ( Amer) 64, Glucose 195 H, Calcium 9.2 06/10/20 22:20: POC Glucose 195 H I & O for Last 24 hours: Intake & Output 06/08/20 06/09/20 06/10/20 06/11/20 11:59 11:59 11:59 11:59 Intake Total 240 / 240 840 / 840 720 / 720 Output Total 5700 / 5700 1400 / 1400 Balance -5460 / -5460 -560 / -560 720 / 720 Weight 170 lb 152 lb 1 oz 151 lb 4 oz 150 lb 6 oz Microbiology Reports for the Last 24 Hours: Microbiology 06/08/20 12:35 Urine,Catheterized Urine Culture - Final NO GROWTH AFTER 48 HOURS - Constitutional no acute distress - *Routine HEENT Exam Head: Present: normocephalic Eye: Present: EOMI, PERRL ENT: Present: mucous membranes dry - *Routine Neck Exam Present: supple - *Routine Respiratory Exam Present: decreased breath sounds - *Routine Cardiovascular Exam Present: RRR, murmur, S4 - *Routine Abdominal Exam Present: soft - *Routine Extremities Exam Absent: calf tenderness - *Routine Skin Exam Present: intact - *Routine Neurological Exam Present: alert. Absent: motor deficit - Routine Psychiatric Exam Present: normal affect Assessment and Plan (1) Hematuria Status: Acute Category: Medical Code(s): R31.9 - Hematuria, unspecified (2) Atrial fibrillation Status: Acute Qualifiers: Atrial fibrillation type: paroxysmal Qualified Code(s): I48.0 - Paroxysmal atrial fibrillation Category: Medical Code(s): I48.91 - Unspecified atrial fibrillation (3) BPH (benign prostatic hyperplasia) Status: Acute Qualifiers: Lower urinary tract symptom presence: symptoms present Lower urinary tract symptom detail: incomplete bladder emptying Qualified Code(s): N40.1 - Benign prostatic hyperplasia with lower urinary tract symptoms; R39.14 - Feeling of incomplete bladder emptying Category: Medical Code(s): N40.0 - Benign prostatic hyperplasia without lower urinary tract symptoms (4) Chronic anticoagulation Status: Acute Category: Medical Code(s): 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 (5) Dementia Status: Acute Qualifiers: Dementia type: vascular dementia Dementia behavioral disturbance: with behavioral disturbance Qualified Code(s): F01.51 - Vascular dementia with behavioral disturbance Category: Medical Code(s): F03.90 - Unspecified dementia without behavioral disturbance (6) Depression Status: Acute Qualifiers: Depression Type: major depressive disorder Major depression recurrence: recurrent Active/Remission status: currently active Major depression episode severity: severe Psychotic features: without psychotic features Qualified Code(s): F33.2 - Major depressive disorder, recurrent severe without psychotic features Category: Medical Code(s): F32.9 - Major depressive disorder, single episode, unspecified (7) Erosive osteoarthritis of multiple sites Status: Acute Category: Medical Code(s): M15.4 - Erosive (osteo)arthritis (8) Essential hypertension Status: Acute Category: Medical Code(s): I10 - Essential (primary) hypertension (9) History of stroke Status: Acute Category: Medical Code(s): Z86.73 - Personal history of transient ischemic attack (TIA), and cerebral infarction without residual deficits (10) Knee pain Status: Acute Qualifiers: Chronicity: chronic Laterality: bilateral Qualified Code(s): M25.561 - P
[2020-06-11 15:35] VITALS: BP 125/65; PULSE 60; RESP 16; TEMP 36.3; O2SAT 97
--- NOTE | 2020-06-11 16:10 | PC.NURSE ---
Pt has slept most of the day. Pt has had a poor appetite. VSS after this am's HTN medicine. Pt remains oriented to self only. Heel protectors applied to bilat feet this shift d/t redness at the heel. Pt has been a q2h turn. Pt has refused to get out of bed and up to chair multiple times when staff attempted. PIV in RAC was d/c'd this shift and a new 20g PIV was placed in the pt's LFA. Pt has been incontinent of urine multiple times this shift and has urinated a heavy amount. No other acute changes or complaints at this time.
[2020-06-11 20:00] VITALS: BP 184/79; PULSE 60; RESP 15; TEMP 36.9; O2SAT 97
[2020-06-12 03:54] VITALS: BP 145/75; PULSE 62; RESP 16; TEMP 36.9; O2SAT 97
--- NOTE | 2020-06-12 04:29 | PC.NURSE ---
Pt. able to state name, but not place or year. Can open eyes spontaneously and follow commands. Tolerated hs pills well. No c/o n/v/d, pain, soa or dizziness.
[2020-06-12 05:00] VITALS: BMI 20.9
[2020-06-12 06:25] LABS: Basophils % 0.5 % (0.1-2.0); Eosinophils # 0.6 K/mm3 (0.0-0.4); Eosinophils % 6.9 % (0.1-12.0); Hematocrit 38.6 % (42.0-52.0); Hemoglobin 12.5 g/dL (14.1-18.0); Lymphocytes # 1.8 K/mm3 (0.7-4.5); Lymphocytes % 21.8 % (10-50); Mean Corpuscular HGB Conc 32.4 g/dL (31.8-35.4); Mean Corpuscular Hemoglobin 28.9 pg (27.0-31.2); Mean Platelet Volume 8.5 fl (7.4-10.4); Monocytes # 0.7 K/mm3 (0.1-1.0); Monocytes % 8.8 % (1.7-9.3); Neutrophils % 61.9 % (37.0-80.0); Platelet Count 217 K/mm3 (142-424); Red Blood Count 4.34 M/mm3 (4.60-6.20); Red Cell Distribution Width 14.1 % (11.5-17.5); White Blood Count 8.1 K/mm3 (4.8-10.8)
[2020-06-12 06:35] LABS: Chloride 107 mmol/L (98-107); Sodium 138 mmol/L (136-145)
[2020-06-12 06:38] LABS: Blood Urea Nitrogen 27 mg/dl (9-20); Calcium 8.9 mg/dl (8.4-10.2); Carbon Dioxide 24 mmol/L (22.0-30.0); Creatinine Clearance Estimated 41 mL/min (50-200); Estimated Glomerular Filt Rate 53 ml/min (>60); GFR (African American) 64 ML/MIN (>60); Glucose 113 mg/dl (74-100)
[2020-06-12 08:00] VITALS: BP 150/69; PULSE 60; RESP 16; TEMP 36.6; O2SAT 94
--- NOTE | 2020-06-12 12:06 | HMH.CNCARD ---
History of Present Illness Consult date: 06/12/20 Requesting physician: Jelani Ashley Consult reason: atrial fibrillation Chief complaint: bleeding Additional Medical History:: 1. Coronary artery disease with history of remote coronary stenting, Dr. Salazar, [facility] 2. History of permanent pacemaker insertion approximately [address] Omero Espitia at [place] in [facility] 3. Chronic atrial fibrillation with history of CVA approximately 2014 A. CHADS-VASC score of at least 6 (age, HTN, DM, prior CVA, DM) equals 9.8% risk of recurrent CVA. ORBIT risk of rebleeding score of 4 (male, Hgb <13, age >74, GFR <60) equals high risk of rebleeding with 8.1 bleeds per 100 pts. 4. Dementia related to history of CVA, approximately 2014 5. History of BPH 6. Diabetes mellitus 7. Hyperlipidemia 8. Hypertension 9. Erosive osteoarthritis of multiple joints 10. CKD, stage 3A, 05/2020 A. Cr 1.3, CrCl 41, GFR 53 History of present illness: 84-year-old white male admitted due to gross hematuria. Patient has worsening dementia related to a stroke approximately 6 or 7 years ago when patient was taken off of Pradaxa in preparation for hernia surgery. He has been on Pradaxa since then with the stating he had an episode of gross hematuria last year approximately this time as well. Patient's dementia is worsening per the . He has an indwelling pacemaker that was implanted approximately 12 to 15 years ago. Cardiology consulted for recommendations regarding Pradaxa/anticoagulation in the setting of gross hematuria. [facility] History Medical History: Reports:: Cancer (SKIN), Depression, Diabetes Mellitus Type 2, Hiatal Hernia, Hypertension, Internal Pacemaker, Urinary Tract Infection Denies:: Diabetes Mellitus Type 1, MRSA *Have you ever received a pneumonia vaccine?: Yes *Have you received a flu vaccine this season?: Yes Other Medical History: Reports: Arthritis Laterality Cases: Right: Other, Bilateral: Carpal Tunnel Release Other Surgeries: Yes: Cardiac Surgery, Colonoscopy, Coronary Stent, Hernia Repair, Pacemaker Amputation: No - *Social History Smoking Status: Former smoker Alcohol Intake: never Substance Use Type: denies use *Occupational Status:: retired Housing: house Household Members: spouse *Travel in the last 8 weeks: None - Psychiatric History Pschychiatric History:: Reports:: Depression Family Hx:: Heart Attack, Hyperlipidemia, Hypertension Meds Home Medications Medication Instructions Recorded Confirmed Type methylphenidate HCl 20 mg tablet 20 mg PO QAM #30 tab 05/01/20 06/08/20 Rx Dabigatran Etexilate Mesylate 150 mg PO BID 06/08/20 06/08/20 History [Pradaxa] Donepezil HCl [Aricept 5mg 5 mg PO HS 06/08/20 06/08/20 History Tablet] Finasteride [Proscar] 5 mg PO DAILY 06/08/20 06/08/20 History Hydralazine HCl 50 mg PO BID 06/08/20 06/08/20 History Isosorbide Dinitrate [Isordil 20mg 20 mg PO BID 06/08/20 06/08/20 History tablet] Losartan Potassium [Cozaar 100mg 100 mg PO DAILY 06/08/20 06/08/20 History Tablets] Metformin HCl [Glucophage] 500 mg PO BID 06/08/20 06/08/20 History Metoprolol Tartrate 50 mg PO BID 06/08/20 06/08/20 History Tamsulosin HCl 0.4 mg PO DAILY 06/08/20 06/08/20 History Sulfamethoxazole/Trimethoprim 1 tab PO BID 06/09/20 06/09/20 History [Sulfamethoxazole-Tmp Ds Tablet] Allergies Allergy/AdvReac Type Severity Reaction Status Date / Time clindamycin Allergy Verified 05/01/20 13:09 Penicillins AdvReac Unknown Verified 05/01/20 12:56 Exam Vital signs and Labs for Last 24 Hours: Temp Pulse Resp BP Pulse Ox 97.9 F 60 16 150/69 H 94 L 06/12/20 08:00 06/12/20 08:00 06/12/20 08:00 06/12/20 08:00 06/12/20 08:00 Laboratory Results - last 24 hr 06/12/20 05:52: WBC 8.1, RBC 4.34 L, Hgb 12.5 L, Hct 38.6 L, MCV 89.0, MCH 28.9, MCHC 32.4, RDW 14.1, Plt Count 217, MPV 8.5, Neut % (Auto) 61.9, Lymph % (Auto) 21.8, [place]
--- NOTE | 2020-06-12 13:03 | HMH.DCSUM ---
General - General Admission date:: 06/08/20 Discharge date: 06/12/20 HPI HPI: Patient is an 84-year-old white male, well-known to me from my practice, who is admitted for gross hematuria. Patient has a longstanding history of BPH. He was slated to undergo a urologic procedure about 6 or 7 years ago. He has atrial fibrillation. Anticoagulation was held prior to this procedure, and he unfortunately sustained a thromboembolic stroke. He has had significant residual deficits following the stroke, gait instability and weakness. He requires [id number] care at home. Patient has comorbid diabetes, atrial fibrillation. He has a vegetative depression following the stroke. His dementia has been evolving. He has significant mood swings. Patient's has noticed gross hematuria. Continues to be anticoagulated for his atrial fibrillation. He presents for further evaluation and treatment. Hospital Course Hospital Course: Pt presented with gross hematuria. He was being actively anticoagulated on pradaxa for history of thromboembolic cva. Quezada was placed and bladder irrigated. Quezada subsequently discontinued; urinary incontinence noted but no further hematuria. Pt has advancing dementia with vegetative depression following cva. is interested in having him return home with her. Patient was seen in consultation with urology and cardiology. Re-start of pradaxa at lower dose was recommended, along with cardiology follow up. Urine culture=no growth at 48 hours. Objective Vital signs: Temp Pulse Resp BP Pulse Ox 97.9 F 60 16 150/69 H 94 L 06/12/20 08:00 06/12/20 08:00 06/12/20 08:00 06/12/20 08:00 06/12/20 08:00 no acute distress, chronically ill appearing, cooperative - *Routine HEENT Exam Head: Present: normocephalic Eye: Present: EOMI, PERRL ENT: Present: mucous membranes moist - *Routine Neck Exam Present: supple - *Routine Respiratory Exam Present: CTA bilaterally - *Routine Cardiovascular Exam Present: irregular rhythm - *Routine Abdominal Exam Present: soft, normoactive bowel sounds. Absent: tenderness - *Routine Extremities Exam Present: joint swelling. Absent: cyanosis, clubbing, edema, calf tenderness - *Routine Skin Exam Present: warm. Absent: jaundice, rash - Routine Psychiatric Exam Present: cooperative, depressed Results Labs on day of discharge: Labs from last 24 hours 06/12/20 06/12/20 05:52 05:52 WBC 8.1 RBC 4.34 L Hgb 12.5 L Hct 38.6 L MCV 89.0 MCH 28.9 MCHC 32.4 RDW 14.1 Plt Count 217 MPV 8.5 Neut % (Auto) 61.9 Lymph % (Auto) 21.8 [place] % (Auto) 8.8 Eos % (Auto) 6.9 Baso % (Auto) 0.5 Neut # (Auto) 5.0 Lymph # (Auto) 1.8 [place] # (Auto) 0.7 Eos # (Auto) 0.6 H Baso # (Auto) 0.0 Sodium 138 Potassium 4.0 Chloride 107 Carbon Dioxide 24 Anion Gap 11.0 BUN 27 H D Creatinine 1.30 H Estimated Creat Clear 41 Estimated GFR 53 L Est GFR ( Amer) 64 Glucose 113 H Calcium 8.9 DS: Diagnosis - Discharge Diagnosis (1) Hematuria Status: Acute (2) Atrial fibrillation Status: Chronic (3) BPH (benign prostatic hyperplasia) Status: Chronic (4) Chronic anticoagulation Status: Chronic (5) Dementia Status: Chronic (6) Depression Status: Chronic (7) Erosive osteoarthritis of multiple sites Status: Chronic (8) Essential hypertension Status: Chronic (9) History of stroke Status: Chronic (10) Knee pain Status: Chronic (11) Pacemaker Status: Chronic (12) Physical debility Status: Chronic Discharge Plan - Patient Discharge Instructions ACTIVITY: Continue current activity, Limited activity DIET: continue same diet Patient Instructions: Essential Hypertension, Blood in Urine, DI for Hematuria, Catheter-associated Urinary Tract Infection - Follow up Plan Follow up with: Jelani Ashley MD [Primary C
--- NOTE | 2020-06-12 14:44 | SW/DCPLANNER ---
SET UP HOME HEALTH WITH PERSONAL TOUCH OUT OF [facility] THAT SERVICES [facility] AND STATED PATIENT HAS USED THEIR SERVICES BEFORE AND WISHES TO USE THEM AGAIN... SET UP PATIENT WITH PT/OT NURSING HOME, DISCHARGING HOME TODAY WITH AND WILL BE SEEN IN THE AM...
== END 2020-06-12 15:30 | disposition home health service (06) ==
LOC: ER 12:34 → 2ND 12:48
PROVIDERS: Nurse Practitioner Family; Admitting Provider Family Medicine; Emergency Provider Emergency Medicine; PCP Family Medicine; Visit Provider Family Medicine
DX: R31.0 Gross hematuria (principal); E11.9 Type 2 diabetes mellitus without complications; I10 Essential (primary) hypertension; Z95.0 Presence of cardiac pacemaker; I69.398 Other sequelae of cerebral infarction; I69.359 Hemiplegia and hemiparesis following cerebral infarction affecting unspecified side; R26.89 Other abnormalities of gait and mobility; N40.1 Benign prostatic hyperplasia with lower urinary tract symptoms; R39.14 Feeling of incomplete bladder emptying; F33.2 Major depressive disorder, recurrent severe without psychotic features; M25.561 Pain in right knee; M25.562 Pain in left knee; Z79.01 Long term (current) use of anticoagulants; I48.91 Unspecified atrial fibrillation; Z95.5 Presence of coronary angioplasty implant and graft; M15.4 Erosive (osteo)arthritis; Z79.899 Other long term (current) drug therapy
CPT/HCPCS: 36415; 80048; 80053; 80061; 81001; 82962; 83735; 84100; 85025; 87086; 87581; 87633; 87798; 99203; G0378; G0463; J1956